=== PATIENT | female | born 1975 | race Hispanic/Latino ===

== ENCOUNTER 2019-11-23 13:58 | Outpatient (CLI) | payer OTHER, SELFPAY ==
--- NOTE | 2019-11-23 14:01 | ECG_ITS ---
Measurements Intervals [place] Rate: 66 P: 13 [place]: 146 QRS: 8 QRSD: 85 T: -10 QT: 419 QTc: 442 Interpretive Statements SINUS RHYTHM LOW QRS VOLTAGE IN PRECORDIAL LEADS ST-T WAVE ABNORMALITY IN INFERIOR LEADS- CONSIDER ISCHEMIA BASELINE ARTIFACT- II, III, AVF ABNORMAL ECG Electronically Signed On 11-23-2019 14:39:54 PAN WASHER HAND by Thaddeus Bertrand D.O.
[2019-11-23 14:34] LABS: Blood Urea Nitrogen 11 mg/dL (7-17); Calcium 8.9 mg/dL (8.4-10.2); Carbon Dioxide 24 mmol/L (22-30); Chloride 100 mmol/L (98-107); Estimated Glomerular Filt Rate > 60; Glucose 80 mg/dL (65-105); Potassium 3.8 mmol/L (3.4-5.0); Sodium 139 mmol/L (137-145)
== END 2019-11-23 13:59 | disposition home or self-care (01) ==
LOC: ANHSURGERY 14:01
PROVIDERS: Anesthesiology; PCP Internal Medicine; Visit Provider Otolaryngology
DX: R94.31 Abnormal electrocardiogram [ECG] [EKG] (principal); E11.9 Type 2 diabetes mellitus without complications; Z01.812 Encounter for preprocedural laboratory examination
CPT/HCPCS: 36415; 80048; 93005

== ENCOUNTER 2019-12-04 00:45 | Day surgery (SDC) | payer OTHER, SELFPAY ==
[2019-11-20 13:57] VITALS: BMI 32.6
[2019-12-04] VITALS (10 sets, daily range): BP systolic 93–133; BP diastolic 50–76; PULSE 66–97; RESP 10–19; TEMP 36.3–36.6; O2SAT 94–100
--- NOTE | 2019-12-04 08:26 | P.PNAN_ITS ---
Anes - Eval Pre Procedure Procedure: Operation Date: 12/04/19 10:00 Proposed Procedures p Left Superficial Parotidectomy, Possible Total Parotidectomy - Roel Pimentel MD Date/Time: 12/04/19 08:26 Surgeon: Gallito Pimentel MD Pre Op Diagnosis: Parotiditis Patient Data Age: 44 Gender: F Height: 5 ft 2 in Weight: 81 kg Allergies Allergy/AdvReac Type Severity Reaction Status Date / Time No Known Allergies Allergy Verified 11/23/19 12:57 Home Medications Medication Instructions Recorded Confirmed Type hydroxychloroquine 200 mg tablet 200 mg PO BID 10/26/19 11/20/19 History pilocarpine HCl 7.5 mg tablet 7.5 mg PO TID 10/26/19 11/20/19 History meloxicam 15 mg PO DAILY 11/20/19 11/20/19 History sumatriptan succinate 100 mg PO ONCE 11/20/19 11/20/19 History phentermine 3.75 mg-topiramate ER 1 cap PO DAILY 14 Days #14 cap 11/23/19 11/23/19 Rx 23 mg capsule,ext.release 24hr mphas phentermine 7.5 mg-topiramate ER 1 cap PO DAILY #30 cap 11/23/19 11/23/19 Rx 46 mg capsule,ext.release 24hr mphase ECG: [address] [place] [address] Electrocardiograph Report Signed Patient: Edward Wallis#: [id number] : 1975Acct:[id number] Age/Sex: 44 / FADM Date: 11/23/19 Loc: [facility] Attending Dr: Roel Pimentel MD Ordering Physician: Hudson Thomas MD Date of Service: 11/23/19 Procedure(s): CA 12 lead EKG Accession Number(s): [id number] cc: ~ Measurements Intervals [place] Rate: 66 P: 13 [place]: 146 QRS: 8 QRSD: 85 T: -10 QT: 419 QTc: 442 Interpretive Statements SINUS RHYTHM LOW QRS VOLTAGE IN PRECORDIAL LEADS ST-T WAVE ABNORMALITY IN INFERIOR LEADS- CONSIDER ISCHEMIA BASELINE ARTIFACT- II, III, AVF ABNORMAL ECG Electronically Signed On 11-23-2019 14:39:54 VISCERA WASHER by Thaddeus Bertrand D.O. : patient denies Patient hx anesthesia problems: none Family hx anesthesia problems: none Prior Surgeries: cystoscopy, robotic assisted hysterectomy [facility] Past Medical History Medical History (Updated 12/04/19 @ 08:26 by Anjana Altmairano CRNA) Chronic pain Diabetes Migraines Sjogren's disease Vaginal delivery Surgical History Surgical History History of cystoscopy History of robot-assisted laparoscopic hysterectomy Social History Social History Smoking status: Never smoker Second hand tobacco smoke exposure: No Alcohol intake: current Exam Day of Procedure 12/04/19 08:26
--- NOTE | 2019-12-04 08:47 | WPDANESEPPF ---
Anes - Initial Pre Proc Eval Procedure: Operation Date: 12/04/19 10:00 Proposed Procedures p Left Superficial Parotidectomy, Possible Total Parotidectomy - Roel Pimentel MD Date/Time: 12/04/19 08:47 Surgeon: Roel Pimentel MD Pre Op Diagnosis: Parotiditis Patient Data Age: 44 Gender: F Height: 5 ft 2 in Weight: 81 kg Allergies Allergy/AdvReac Type Severity Reaction Status Date / Time No Known Allergies Allergy Verified 12/04/19 08:35 Home Medications Medication Instructions Recorded Confirmed Type hydroxychloroquine 200 mg tablet 200 mg PO BID 10/26/19 11/20/19 History pilocarpine HCl 7.5 mg tablet 7.5 mg PO TID 10/26/19 11/20/19 History meloxicam 15 mg PO DAILY 11/20/19 11/20/19 History sumatriptan succinate 100 mg PO ONCE 11/20/19 11/20/19 History phentermine 3.75 mg-topiramate ER 1 cap PO DAILY 14 Days #14 cap 11/23/19 11/23/19 Rx 23 mg capsule,ext.release 24hr mphas phentermine 7.5 mg-topiramate ER 1 cap PO DAILY #30 cap 11/23/19 11/23/19 Rx 46 mg capsule,ext.release 24hr mphase : patient denies Patient hx anesthesia problems: none Family hx anesthesia problems: none PMFSH Past Medical History Medical History Chronic pain Diabetes Migraines Sjogren's disease Vaginal delivery Surgical History Surgical History History of cystoscopy History of robot-assisted laparoscopic hysterectomy Family History Family History Father Family history of diabetes mellitus in first degree relative Sibling Family history of diabetes mellitus in first degree relative Mother Family history of malignant neoplasm of uterus Social History Social History Smoking status: Never smoker Second hand tobacco smoke exposure: No Alcohol intake: current Anes - Eval Final PreProcedure Day of Procedure 12/04/19 08:47 Patient weight: obese Heart: regular rate and rhythm Lungs: clear to auscultation Airway: Mallampati scale class II Neurological: alert and oriented Last oral intake: >/= 8 hours ASA classification: III Emergent: no Anesthetic plan: proceed Anesthesia type and monitoring: general ETT and standard monitoring Informed Consent: The patient's anesthetic plan and its attendant risks and benefits were discussed with the patient/family/POA. Questions were solicited and answers provided to the satisfaction of the patient/family/POA.
[2019-12-04] MEDS: LACTATED RINGERS 1,000 ML 30 ML IV CONT ×2 (08:50→14:25)
[2019-12-04 08:51] LABS: Glucose Point of Care 91 (65-105)
--- NOTE | 2019-12-04 08:55 | PM.IMHP ---
H&P: HPI History of Present Illness Chief complaint: Parotiditis Narrative: Sjogrens. Left chronic parotitis. Review of Systems Review of Systems: All systems reviewed & are unremarkable except as noted in HPI and below PMFSH Past Medical History Medical History Chronic pain Diabetes Migraines Sjogren's disease Vaginal delivery Surgical History Surgical History History of cystoscopy History of robot-assisted laparoscopic hysterectomy Family History Family History Father Family history of diabetes mellitus in first degree relative Sibling Family history of diabetes mellitus in first degree relative Mother Family history of malignant neoplasm of uterus Social History Social History Smoking status: Never smoker Second hand tobacco smoke exposure: No Alcohol intake: current Meds Home Medications and Allergies Home Medications Medication Instructions Recorded Confirmed Type hydroxychloroquine 200 mg tablet 200 mg PO BID 10/26/19 11/20/19 History pilocarpine HCl 7.5 mg tablet 7.5 mg PO TID 10/26/19 11/20/19 History meloxicam 15 mg PO DAILY 11/20/19 11/20/19 History sumatriptan succinate 100 mg PO ONCE 11/20/19 11/20/19 History phentermine 3.75 mg-topiramate ER 1 cap PO DAILY 14 Days #14 cap 11/23/19 11/23/19 Rx 23 mg capsule,ext.release 24hr mphas phentermine 7.5 mg-topiramate ER 1 cap PO DAILY #30 cap 11/23/19 11/23/19 Rx 46 mg capsule,ext.release 24hr mphase Allergies Allergy/AdvReac Type Severity Reaction Status Date / Time No Known Allergies Allergy Verified 12/04/19 08:35 Exam Narrative: Exam Narrative: left parotid gland swelling, induration Assessment and Plan Assessment and plan (1) Chronic parotitis: Code(s): K11.23 - Chronic sialoadenitis Status: Acute Assessment and Plan: Sjogren's. chronic parotitis on left. Plan for left superficial parotidectomy.
[2019-12-04] MEDS: ceFAZolin 2 GM/D5W 50 ML 2 GM/50 ML BAG IVPB (09:28)
[2019-12-04] MEDS: LIDO 1%/EPINEPHRINE 1:100,000 20 ML VIAL 5 ML INFILTRATE (10:13)
[2019-12-04] MEDS: OXYMETAZOLINE HCL 0.05% NAS 15 ML BTL (*BKC) 1 SPRAY NASAL (12:27)
[2019-12-04] MEDS: ceFAZolin SODIUM 1 GM VIAL 2 GM IV PUSH (13:36)
--- NOTE | 2019-12-04 14:24 | PM.PROC ---
Procedure Note - Detailed Date of procedure: 12/04/19 Pre-op diagnosis: Parotiditis chronic left parotitis Post-op diagnosis: same Procedure performed: left superficial parotidectomy with facial nerve monitoring Description of procedure: After informed consent was obtained the time out procedure was performed the patient was brought to the operating room placed on the operating table in the supine position. The patient was placed under general endotracheal anesthesia. A modified Durga incision was marked out in the patient's left preauricular crease. 1% lidocaine with one 100,000 epinephrine was injected into the marked incision. The patient was prepped and draped in the usual fashion. A #15 scalpel was used to make the skin incision. This was carried down to the level of the greater auricular nerve.this nerve was dissected superiorly up to the patient's earlobe. The preauricular incision was also carried down to the level of the parotid fascia. Next the preauricular incision was carried down along the tragal cartilage and the tragal pointer using a fine dissector and bipolar electrocautery. The greater auricular nerve was preserved.? The posterior belly of the digastric muscle was identified after retracting the sternocleidomastoid muscle laterally. The main trunk of the facial nerve was identified in its normal anatomic position and preserved. The nerve intraoperative monitor was utilized throughout the case and the facial nerve was confirmed using the prass probe.? Next the facial nerve was dissected laterally to the pes and the upper lobe and lower divisions were identified. The superficial parotid gland in its entirety was dissected away from the lateral portion of the facial nerve. Once the specimen was passed off the field the wound bed was carefully irrigated using warm saline solution, there is no evidence of any significant bleeding. The upper and lower divisions of the facial nerve were then stimulated at 1 milliamp, and found to have greater than 1000 microvolts of stimulation. The wound was then closed in layers over a? Moo drain using 3-0 Vicryl, and 4-0 and? 5-0 Prolene suture. A fluff dressing along with a jaw bra were then placed on the patient. The Moo drain was noted to be holding suction. The patient was then awakened from general anesthesia, extubated and transferred to recovery in stable condition. Anesthesia: GETA Surgeon: Roel Pimentel MD Estimated blood loss (mL): 30 Drains: Yes Packing: No Pathology: yes (left superficial parotid gland) Complications: No immediate complications Condition: stable Disposition: PACU Findings: chronic inflammation noted. Hx of Sjogren's syndrome
[2019-12-04 14:49] LABS: Glucose Point of Care 157 (65-105)
--- NOTE | 2019-12-04 15:40 | SUR.PHASEI ---
1540 UPDATED SPOUSE IN WAITING ROOM
== END 2019-12-04 17:30 | disposition home or self-care (01) ==
PROVIDERS: PCP Internal Medicine; Visit Provider Otolaryngology
PROC: (CPT 42410; principal; 2019-12-04 10:00)
DX: K11.23 Chronic sialoadenitis (principal); M35.00 Sjogren syndrome, unspecified; E11.9 Type 2 diabetes mellitus without complications; G89.29 Other chronic pain
CPT/HCPCS: 42415; 88305; 88307; A9270; J0330; J0690; J1100; J2250; J2370; J2405; J2704; J3010; J7120

== ENCOUNTER 2021-11-14 08:04 | Outpatient (CLI) | payer OTHER, SELFPAY ==
--- NOTE | ~2021-11-14 | MM_ITS ---
EXAMINATION: MM screening jair BI w franklyn HISTORY: Screening TECHNIQUE: Craniocaudal and mediolateral oblique 3-D tomosynthesis images were obtained and synthetic 2-D images were generated. CAD analysis was submitted and interpreted. COMPARISON: No prior mammogram is available for comparison at this institution. BREAST PARENCHYMAL COMPOSITION: The breasts are heterogeneously dense, which may obscure small masses . FINDINGS: There is a mass in the lower inner quadrant of the left breast posteriorly. There are no simon spicious masses, calcifications or architectural distortion in the right breast to suggest malignancy . IMPRESSION: 1. Left breast mass, lower inner quadrant. 2. Additional mammographic views and possible breast ultrasound are recommended. BI-RADS Category 0: Incomplete: Needs additional imaging evaluation. Reviewed, dictated and finalized at location A. TUB TENDER IMPRESSION: 1. Left breast mass, lower inner quadrant. 2. Additional mammographic views and possible breast ultrasound are recommended . BI-RADS Category 0: Incomplete: Needs additional imaging evaluation.
== END 2021-11-14 08:05 | disposition home or self-care (01) ==
PROVIDERS: PCP Internal Medicine; Visit Provider Obstetrics & Gynecology
DX: Z12.31 Encounter for screening mammogram for malignant neoplasm of breast (principal); R92.8 Other abnormal and inconclusive findings on diagnostic imaging of breast
CPT/HCPCS: 77063; 77067

== ENCOUNTER 2021-11-21 12:11 | Outpatient (CLI) | payer OTHER, SELFPAY ==
--- NOTE | ~2021-11-21 | MMUS_ITS ---
EXAMINATION: MM diagnostic jair LT w franklyn, US breast LT limited HISTORY: Lower inner quadrant left breast mass reported on November 14, 2019 screening mammogram TECHNIQUE: Additional 3-D tomosynthesis images of the left breast were performed and synthetic 2-D im ages were generated. CAD analysis was submitted and interpreted. High resolution targeted 9:00-10:00 left breast ultrasound was performed. COMPARISON: November 14, 2021 screening mammogram FINDINGS: MAMMOGRAPHIC FINDINGS: A circumscribed approximately 5 x 11 mm opacity is noted in the mid to upper inner quadrant breast at approximately 10:00 position. ULTRASOUND: 9:00 6 cm from nipple: 4.4 x 10 x 8.1 mm circumscribed sonolucency with through transmission, likely a septated cyst. 10:00 4 cm from nipple: 3.5 x 4.9 mm cyst IMPRESSION: 1. Benign cysts at 9:00 and 10:00 2. Routine annual mammographic screening is recommended. BI-RADS Category 2: Benign finding(s). Reviewed, dictated and finalized at location A. ENT ASSISTANT IMPRESSION: 1. Benign cysts at 9:00 and 10:00 2. Routine annual mammographic screening is recommended. BI-RADS Category 2: Benign finding(s).
== END 2021-11-21 12:12 | disposition home or self-care (01) ==
LOC: ANHIMG 12:13
PROVIDERS: PCP Internal Medicine; Visit Provider Obstetrics & Gynecology
DX: R92.8 Other abnormal and inconclusive findings on diagnostic imaging of breast (principal)
CPT/HCPCS: 76642; 77061; 77065; G0279

== ENCOUNTER 2022-07-26 16:16 | Emergency (ER) | payer OTHER, SELFPAY ==
--- NOTE | ~2022-07-26 | XR_ITS ---
EXAMINATION: XR chest 2V Exam Date/Time: 07/26/2022 16:35 CDT HISTORY: COUGH X 1 WEEK Comparison: 08/04/2006. RESULT: Lines, tubes, and devices: None. Lungs and pleura: Low volumes with crowding. Cardiomediastinal silhouette: Stable. Other: No acute osseous or upper abdominal finding. IMPRESSION: No acute cardiopulmonary process. Reviewed, dictated and finalized at location K.
[2022-07-26 16:24] VITALS: BP 141/100; PULSE 72; RESP 16; TEMP 35.7; O2SAT 99
--- NOTE | 2022-07-26 16:57 | ED.URI ---
HPI - URI/Sore Throat General Chief Complaint: Upper Respiratory Infection Stated Complaint: Cough Time Seen by Provider: 07/26/22 16:30 Source: patient Mode of arrival: ambulatory Limitations: no limitations History of Present Illness HPI Narrative: is a 47-year-old female patient presenting to clinic today with complaints of cough and congestion x1.5 weeks. She denies any fever or chills. states that she is not bringing up any phlegm is this is a dry cough and she has developed some chest discomfort due to the cough MD elicited complaint: sore throat and nasal congestion Related Data Home Medications Medication Instructions Recorded Confirmed adalimumab 40 mg/0.4 mL 40 mg subcut DIRECTED 07/26/22 07/26/22 subcutaneous pen kit (Humira(CF) Pen) Allergies Allergy/AdvReac Type Severity Reaction Status Date / Time No Known Allergies Allergy Verified 07/26/22 16:31 Review of Systems Review of Systems: Pertinent positives per HPI. Patient denies any fever, chills, rash, headache, visual changes, dizziness, shortness of breath, chest pain, palpitations, nausea, vomiting, diarrhea, constipation, abdominal pain, or any urinary issues. PMFSH Past Medical History Medical History Chronic pain Diabetes Migraines Sjogren's disease Vaginal delivery Surgical History Surgical History History of cystoscopy History of robot-assisted laparoscopic hysterectomy Family History Family History Father Family history of diabetes mellitus in first degree relative Sibling Family history of diabetes mellitus in first degree relative Mother Family history of malignant neoplasm of uterus Social History Social History Smoking status: Never smoker Second hand tobacco smoke exposure: No Alcohol intake: current Comments At the time of my signature, I reviewed and agree with the nursing past medical, surgical, social, and family history. There is no relevant family history pertinent to the patient complaint. Exam Narrative: General: Well-developed, well nourished, in no apparent distress Head: Normocephalic, atraumatic Eyes: Pupils equally round and reactive to light bilaterally, EOM intact, sclera and conjunctive clear, no discharge, lids normal Ears: TMs intact and clear, ear canals clear, no drainage, grossly hearing normal. Nose: Nares patent, clear nasal discharge, no inflammation, no sinus tenderness. Mouth: Oral pharynx without lesions or masses, good dentition, MMM. Neck: Supple, trachea midline, no enlargement of anterior or posterior cervical nodes, no thyroid masses or goiter palpable. Cardio: Regular rate and rhythm, s1 and s2 normal, no murmur appreciated. Resp: diminished in the bases otherwise clear, no rhonchi, rales, wheezing or rubs Course Course Emergency Course: Portions of this record may have been created with voice recognition software. Level of Care: Express Care Visit Vital Signs Vital signs: Vital Signs Temperature 35.7 C L 07/26/22 16:24 Pulse Rate 72 07/26/22 16:24 Respiratory Rate 16 07/26/22 16:24 Blood Pressure 141/100 H 07/26/22 16:24 Pulse Oximetry 99 07/26/22 16:24 Oxygen Delivery Room Air 07/26/22 16:24 Temperature 35.7 C L 07/26/22 16:24 Pulse Rate 72 07/26/22 16:24 Respiratory Rate 16 07/26/22 16:24 Blood Pressure 141/100 H 07/26/22 16:24 Pulse Oximetry 99 07/26/22 16:24 Oxygen Delivery Room Air 07/26/22 16:24 Vital signs reviewed MDM - URI/Sore Throat MDM Narrative Medical decision making narrative: at the time of visit patient is resting comfortably on exam table. Chest x-ray was performed and was negative for any sign of pneumonia. I suspect patient hinojosa
== END 2022-07-26 17:05 | disposition home or self-care (01) ==
PROVIDERS: Emergency Provider Nurse Practitioner Family; PCP Internal Medicine
DX: J40 Bronchitis, not specified as acute or chronic (principal); E11.9 Type 2 diabetes mellitus without complications; M35.00 Sjogren syndrome, unspecified
CPT/HCPCS: 71046; 99213; G0463

== ENCOUNTER 2022-09-08 10:27 | Outpatient (CLI) | payer OTHER, SELFPAY ==
--- NOTE | ~2022-09-08 | XR_ITS ---
EXAMINATION: XR lumbar spine 2-3V DATE: 09/08/2022 10:53 INDICATION: Low back pain extending across the whole back and down the left leg TECHNIQUE: Anteroposterior and lateral views of the lumbar spine, and cone-down lateral view of the l umbosacral junction were obtained. COMPARISON: 05/29/2014 FINDINGS: Alignment is normal. Vertebral body heights are normal. Mild disc height loss at L3-L4 and L5-S1. Mil d osteoarthritis at the bilateral hip joints and a few sacroiliac joints. Sacrum and bilateral sacroi liac joints are normal. IMPRESSION: 1. Mild lumbar spondylosis. Reviewed, dictated and finalized at location A. TESTER IMPRESSION: 1. Mild lumbar spondylosis.
== END 2022-09-08 10:28 | disposition home or self-care (01) ==
PROVIDERS: PCP Internal Medicine; Visit Provider Internal Medicine
DX: M54.50 Low back pain, unspecified (principal); R10.11 Right upper quadrant pain
CPT/HCPCS: 72100

== ENCOUNTER 2022-09-11 09:59 | Outpatient (CLI) | payer OTHER, SELFPAY ==
--- NOTE | ~2022-09-11 | US_ITS ---
EXAMINATION: US right upper quadrant DATE: 09/11/2022 11:53 INDICATION: Right upper quadrant pain TECHNIQUE: Multiple grayscale and Doppler ultrasound images of the abdomen were obtained. COMPARISON: 05/10/2018 FINDINGS: The head and body of the pancreas are normal. The pancreatic tail is obscured by bowel gas. The liver demonstrates increased echogenicity, heterogenous echotexture, and decreased through trans mission. No surface nodularity. Normal hepatopetal flow in the main portal vein. The gallbladder is n ormal with no abnormal wall thickening, pericholecystic fluid or stones. The normal common bile duct measures 5 mm. There was no sonographic [place] sign. IMPRESSION: 1. Diffuse hepatic steatosis. Reviewed, dictated and finalized at location A. ZER OPERATOR
== END 2022-09-11 10:00 | disposition home or self-care (01) ==
PROVIDERS: PCP Internal Medicine; Visit Provider Internal Medicine
DX: M54.50 Low back pain, unspecified (principal); R10.11 Right upper quadrant pain; K76.0 Fatty (change of) liver, not elsewhere classified
CPT/HCPCS: 76705

== ENCOUNTER 2022-12-06 11:45 | Emergency (ER) | payer OTHER, SELFPAY ==
--- NOTE | 2022-12-06 11:58 | ED.URI ---
HPI - URI/Sore Throat General Chief Complaint: Upper Respiratory Infection Stated Complaint: cold sx Time Seen by Provider: 12/06/22 11:58 Source: patient Mode of arrival: ambulatory Limitations: no limitations History of Present Illness HPI Narrative: Katlyn is a 47-year-old female patient presenting to the clinic today with complaints of body aches, sore throat, nasal congestion, and chills x1 day. She reports her symptoms began yesterday. She denies any known fever or chills. Her son is also being seen in the clinic today with similar symptoms MD elicited complaint: sore throat, nasal congestion and other (Body aches) Related Data Home Medications Medication Instructions Recorded Confirmed adalimumab 40 mg/0.4 mL 40 mg subcut DIRECTED 07/26/22 12/06/22 subcutaneous pen kit (Humira(CF) Pen) Allergies Allergy/AdvReac Type Severity Reaction Status Date / Time No Known Allergies Allergy Verified 12/06/22 11:52 Review of Systems Review of Systems: Pertinent positives per HPI. Patient denies any fever, chills, rash, headache, visual changes, dizziness, cough, shortness of breath, chest pain, palpitations, nausea, vomiting, diarrhea, constipation, abdominal pain, or any urinary issues. [facility] Past Medical History Medical History (Updated 12/06/22 @ 12:28 by Isai Walter APRN) Chronic pain Diabetes Migraines Sjogren's disease Vaginal delivery Surgical History Surgical History History of cystoscopy History of robot-assisted laparoscopic hysterectomy Family History Family History Father Family history of diabetes mellitus in first degree relative Sibling Family history of diabetes mellitus in first degree relative Mother Family history of malignant neoplasm of uterus Social History Social History Smoking status: Never smoker Second hand tobacco smoke exposure: No Alcohol intake: current Substance use: never Substance use type: does not use Lack of Transportation: No Lack of Food: Never True Current Housing: I Have Housing Concerned About Future Housing: No Difficulty Paying Gas/Electric Bills: No Difficulty Paying for Meds: No Currently Unemployed: No Education: Trade/Vocational Certificate Comments At the time of my signature, I reviewed and agree with the nursing past medical, surgical, social, and family history. There is no relevant family history pertinent to the patient complaint. Exam Narrative: General: Well-developed, well nourished, in no apparent distress Head: Normocephalic, atraumatic Eyes: Pupils equally round and reactive to light bilaterally, EOM intact, sclera and conjunctive clear, no discharge, lids normal Ears: TMs intact and dull, ear canals clear, no drainage, grossly hearing normal. Nose: Nares patent, clear nasal discharge, no inflammation, no sinus tenderness. Mouth: Oral pharynx without lesions or masses, good dentition, MMM. Oropharynx red Neck: Supple, trachea midline, no enlargement of anterior or posterior cervical nodes, no thyroid masses or goiter palpable. Cardio: Regular rate and rhythm, s1 and s2 normal, no murmur appreciated. Resp: Clear to auscultation bilaterally, no rhonchi, rales, wheezing or rubs Course Course Emergency Course: Portions of this record may have been created with voice recognition software. Level of Care: Express Care Visit Vital Signs Vital signs: Vital Signs Temperature 36.8 C 12/06/22 11:59 Pulse Rate 73 12/06/22 11:59 Respiratory Rate 16 12/06/22 11:59 Blood Pressure 152/88 H 12/06/22 11:59 Pulse Oximetry 98 12/06/22 11:59 Oxygen Delivery Room Air 12/06/22 11:59 Temperature 36.8 C 12/06/22 11:59 Pulse Rate 73 12/06/22 11:59 Respiratory Rate 16 12/06/22 11:59
[2022-12-06 11:59] VITALS: BP 152/88; PULSE 73; RESP 16; TEMP 36.8; O2SAT 98
== END 2022-12-06 12:34 | disposition home or self-care (01) ==
PROVIDERS: Emergency Provider Nurse Practitioner Family; PCP Internal Medicine
DX: J02.8 Acute pharyngitis due to other specified organisms (principal); E11.9 Type 2 diabetes mellitus without complications
CPT/HCPCS: 99211; G0463

== ENCOUNTER 2022-12-07 15:59 | Emergency (ER) | payer OTHER, SELFPAY ==
[2022-12-07] VITALS (11 sets, daily range): BP systolic 132–169; BP diastolic 76–89; PULSE 65–78; RESP 16–25; TEMP 36.5; O2SAT 97–100
--- NOTE | ~2022-12-07 | XR_ITS ---
EXAMINATION: XR chest 2V Exam Date/Time: 12/07/2022 16:10 CDT HISTORY: STABBING CP SOB FOR 2 DAYS Comparison: 07/26/2022. RESULT: Lines, tubes, and devices: None. Lungs and pleura: Clear. Cardiomediastinal silhouette: Stable. Other: No acute osseous or upper abdominal finding. IMPRESSION: No acute cardiopulmonary process. Reviewed, dictated and finalized at location K.
--- NOTE | 2022-12-07 16:00 | ECG_ITS ---
Measurements Intervals [place] Rate: 69 P: 49 [place]: 142 QRS: 0 QRSD: 80 T: 1 QT: 411 QTc: 443 Interpretive Statements SINUS RHYTHM CONSIDER INFERIOR INFARCT, AGE INDETERMINATE BORDERLINE ST-T WAVE ABNORMALITY- ANTEROLATERAL LEADS ABNORMAL ECG COMPARED TO ECG 11/23/2019 14:31:28 NO SIGNIFICANT CHANGES Electronically Signed On 12-07-2022 16:14:29 CDT by Thaddeus Bertrand D.O.
[2022-12-07 18:47] LABS: Basophils Percent Auto 0.5 % (0.2-1.2); Eosinophils Absolute Auto 0.1 K/mm3 (0-0.3); Eosinophils Percent Auto 1.4 % (0-4.4); Hematocrit 45.1 % (37.0-47.0); Immature Granulocyte Absolute 0.01 K/mm3 (0.00-0.031); Immature Granulocyte Percent A 0.2 % (0-0.5); Lymphocytes Absolute Auto 3.15 K/mm3 (0.9-3.2); Lymphocytes Percent Auto 47.7 % (18.3-44.2); Mean Corpuscular HGB Conc 33.3 g/dl (32-36); Mean Corpuscular Hemoglobin 29.8 pg (26-34); Mean Corpuscular Volume 89.7 fl (80-100); Mean Platelet Volume 11.6 fl (7.4-10.4); Monocytes Absolute Auto 0.5 K/mm3 (0.1-0.6); Neutrophils Absolute Auto 2.8 K/mm3 (1.3-6.7); Neutrophils Percent Auto 42.2 % (45.5-73.1); Platelet Count Result 227 k/mm3 (150-375); Red Blood Count 5.03 M/mm3 (4.2-5.4); White Blood Count 6.6 K/mm3 (4.5-10.0)
[2022-12-07 18:57] LABS: Alanine Aminotransferase 81 U/L (6-35); Albumin Level 4.9 g/dL (3.5-5.1); Alkaline Phosphatase 100 U/L (38-126); Anion Gap 5 mmol/L (8-16); Aspartate Amino Transferase 54 U/L (14-36); Bilirubin,Total 0.5 mg/dL (0.2-1.3); Blood Urea Nitrogen 10 mg/dL (7-17); Calcium 9.7 mg/dL (8.4-10.2); Carbon Dioxide 29 mmol/L (22-30); Chloride 102 mmol/L (98-107); Estimated CRCL calculation 120 ml/min; Estimated Glomerular Filt Rate > 60; Glucose 94 mg/dL (65-110); Lipase 41 U/L (23-300); Potassium 4.2 mmol/L (3.4-5.0); Prothrombin Time 12.8 Seconds (11.1-14.7); Sodium 136 mmol/L (137-145)
[2022-12-07 18:58] LABS: Partial Thromboplastin Time 30.8 SECONDS (22.3-36.8)
[2022-12-07 19:08] LABS: Troponin I < 0.012 ng/mL (0.000-0.034)
[2022-12-07 23:08] LABS: Troponin I < 0.012 ng/mL (0.000-0.034)
[2022-12-07 23:17] LABS: D Dimer < 0.27 ug/mL (<0.48)
--- NOTE | 2022-12-07 23:57 | PC.NURSE ---
Per DR. Douglas, discontinue ASA ordered for protocol.
[2022-12-08] VITALS (13 sets, daily range): BP systolic 107–152; BP diastolic 72–91; PULSE 61–74; RESP 12–20; O2SAT 58–100
[2022-12-08 00:18] LABS: Influenza A QL RT-PCR Negative (Negative); Influenza B QL RT-PCR Negative (Negative); RSV RNA, RT-PCR Negative (Negative); SARS-CoV-2 RNA PCR Negative
--- NOTE | 2022-12-08 00:28 | ED.GENADULT ---
HPI - General Adult General Chief complaint: Chest Pain Stated complaint: Chest pain Time Seen by Provider: 12/07/22 22:05 History of Present Illness HPI narrative: Patient is a 47-year-old female who presents emerged part with chief complaint of chest pain. The patient reports that she started having pain on the left side of her chest that describes as sharp and pleuritic worse with inspiration and movement. Patient did develop of a cough for the last couple days and reports she had some chills and body aches. Patient denies defined fever patient reports cough has been nonproductive Related Data Home Medications Medication Instructions Recorded Confirmed adalimumab 40 mg/0.4 mL 40 mg subcut DIRECTED 07/26/22 12/06/22 subcutaneous pen kit (Humira(CF) Pen) Allergies Allergy/AdvReac Type Severity Reaction Status Date / Time No Known Allergies Allergy Verified 12/07/22 22:01 Review of Systems Review of Systems: A 10 system review of systems was completed on the patient and is negative except for what is stated in the HPI. Nursing and ancillary documentation was reviewed. [facility] Past Medical History Medical History (Updated 12/08/22 @ 00:32 by Kehinde Douglas MD) Chronic pain Diabetes Migraines Sjogren's disease Vaginal delivery Surgical History Surgical History History of cystoscopy History of robot-assisted laparoscopic hysterectomy Family History Family History Father Family history of diabetes mellitus in first degree relative Sibling Family history of diabetes mellitus in first degree relative Mother Family history of malignant neoplasm of uterus Social History Social History Smoking status: Never smoker Second hand tobacco smoke exposure: No Alcohol intake: current Substance use: never Substance use type: does not use Lack of Transportation: No Lack of Food: Never True Current Housing: I Have Housing Concerned About Future Housing: No Difficulty Paying Gas/Electric Bills: No Difficulty Paying for Meds: No Currently Unemployed: No Education: Trade/Vocational Certificate Exam Narrative: GENERAL: Well-appearing, well-nourished, and in no acute distress. HEAD: Normocephalic, atraumatic. EYES: PERRLA and EOMI. ENT: Nares clear, no rhinorrhea or epistaxis. Mucous membranes moist. NECK: Supple. CHEST: Clear to auscultation. No respiratory distress. Chest wall is tender to palpation in the left sternal border HEART: Regular rate and rhythm. No murmur heard. Normal peripheral pulses. ABDOMEN: Soft, nontender, nondistended, normal active bowel sounds. EXTREMITIES: Normal range of motion. No edema. SKIN: Warm, dry, no rash. NEURO: No focal deficits. Alert and oriented x3. PSYCH: Normal mood and affect. Course Vital Signs Vital signs: Vital Signs Temperature 36.5 C 12/07/22 16:02 Pulse Rate 73 12/07/22 16:02 Respiratory Rate 16 12/07/22 16:02 Blood Pressure 154/76 H 12/07/22 16:02 Pulse Oximetry 97 12/07/22 16:02 Oxygen Delivery Room Air 12/07/22 16:02 Temperature 36.5 C 12/07/22 16:02 Pulse Rate 73 12/07/22 22:11 Respiratory Rate 21 H 12/07/22 22:11 Blood Pressure 169/86 H 12/07/22 22:04 Pulse Oximetry 100 12/07/22 22:11 Oxygen Delivery Room Air 12/07/22 22:02 Medical Decision Making MDM Narrative Medical decision making narrative: Differential diagnosis includes pneumothorax, PE, ACS, pleuritic chest pain, chest wall pain COVID, pneumonia, bronchitis EKG sinus rhythm rate of [address] elevation or ST depression Studies were obtained which showed a initial troponin of negative and a 6-hour troponin of negative COVID and flu and RSV were negative lipase was negative limits liver enzymes were slightly elevated,
== END 2022-12-08 01:30 | disposition home or self-care (01) ==
PROVIDERS: Emergency Medicine; Emergency Provider Emergency Medicine; PCP Internal Medicine
DX: R07.89 Other chest pain (principal); Z20.822 Contact with and (suspected) exposure to COVID-19; E11.9 Type 2 diabetes mellitus without complications; M35.00 Sjogren syndrome, unspecified; Z90.710 Acquired absence of both cervix and uterus; R94.31 Abnormal electrocardiogram [ECG] [EKG]
CPT/HCPCS: 36415; 71046; 80053; 83690; 84484; 85025; 85380; 85610; 85730; 87637; 93005; 99284

== ENCOUNTER 2022-12-15 15:44 | Outpatient (CLI) | payer OTHER, SELFPAY ==
--- NOTE | ~2022-12-15 | MM_ITS ---
EXAMINATION: MM screening [facility] BI [facility] HISTORY: Screening TECHNIQUE: Craniocaudal and mediolateral oblique 3-D tomosynthesis images were obtained and synthetic 2-D images were generated. CAD analysis was submitted and interpreted. COMPARISON: Comparison to multiple prior studies sequentially, with oldest reviewed study dated 07/28. BREAST PARENCHYMAL COMPOSITION: There are scattered areas of fibroglandular density. FINDINGS: There is no evidence of suspicious mass, calcification, or architectural distortion to sugg est malignancy in either breast. There has been no suspicious interval change. IMPRESSION: 1. No mammographic evidence of malignancy. 2. Recommend routine screening mammography in one year. BI-RADS Category 1: Negative Reviewed, dictated and finalized at location A.
== END 2022-12-15 15:45 | disposition home or self-care (01) ==
LOC: ANHIMG 15:45
PROVIDERS: PCP Internal Medicine; Visit Provider Obstetrics & Gynecology
DX: Z12.31 Encounter for screening mammogram for malignant neoplasm of breast (principal)
CPT/HCPCS: 77063; 77067

== ENCOUNTER 2023-06-27 08:58 | Emergency (ER) | payer OTHER, SELFPAY ==
[2023-06-27 09:08] VITALS: BP 127/87; PULSE 81; RESP 18; TEMP 36.6; O2SAT 97
--- NOTE | 2023-06-27 09:19 | ED.URI ---
HPI - URI/Sore Throat General Chief Complaint: Upper Respiratory Infection Stated Complaint: Cough Time Seen by Provider: 06/27/23 09:19 Source: patient, RN notes reviewed and old records reviewed Mode of arrival: ambulatory Limitations: no limitations History of Present Illness HPI Narrative: 48 year old female who presents to [facility] care with complaints of persistent cough and some headache discomfort. Patient reports that she has a lot of mucous in her throat, ribs hurt from coughing.. Patient states that her cough is worse at night and she is not resting well. Patient received prescription for doxycycline from her PCP on the but doesn't seem to be getting any better. Patient reports that she has been taking some OTC sinus with decongestant also. Patient reports that she has not had a fever that she is aware of. Patient has history of Sjogren and takes infusions for her disease. MD elicited complaint: cough and sore throat Pertinent past history: immunosuppression Onset (ago): week(s) (2) Able to tolerate fluids by mouth: Yes Treatments prior to arrival: antibiotics and other (sinus med with decogestant) Related Data Home Medications Medication Instructions Recorded Confirmed doxycycline hyclate 100 mg tablet mg 06/27/23 semaglutide 1 mg/dose (4 mg/3 mL) mg subcut 06/27/23 subcutaneous pen injector (Ozempic) Allergies Allergy/AdvReac Type Severity Reaction Status Date / Time No Known Allergies Allergy Verified 06/27/23 09:07 Review of Systems Review of Systems: CONSTITUTIONAL: Denies malaise, chills, sweats, or fever. EYES: Denies visual changes, redness, or discharge. ENT: Reports rhinorrhea, congestion, sinus pain,no otalgia and no sore throat. CARDIOVASCULAR: Denies chest pain, palpitations, or edema. RESPIRATORY: Reports cough.? Denies dyspnea. GASTROINTESTINAL: Denies abdominal pain, nausea, vomiting, diarrhea SKIN: Denies rash or itching. MUSCULOSKELETAL: Denies myalgia. NEUROLOGIC: Reports headache. All systems reviewed & are unremarkable except as noted in HPI and below PMFSH Past Medical History Medical History (Updated 06/28/23 @ 08:18 by Marely Anderson NP) Chronic pain Diabetes Migraines Sjogren's disease Vaginal delivery Surgical History Surgical History History of cystoscopy History of robot-assisted laparoscopic hysterectomy Family History Family History Father Family history of diabetes mellitus in first degree relative Sibling Family history of diabetes mellitus in first degree relative Mother Family history of malignant neoplasm of uterus Social History Social History Smoking status: Never smoker Second hand tobacco smoke exposure: No Alcohol intake: current Substance use: never Substance use type: does not use Lack of Transportation: No Lack of Food: Never True Current Housing: I Have Housing Concerned About Future Housing: No Difficulty Paying Gas/Electric Bills: No Difficulty Paying for Meds: No Currently Unemployed: No Education: Trade/Vocational Certificate Comments At time of signature, agree with nursing past medical, surgical, social and family history. There is no relevant family history pertinent to the presenting complaint Exam Narrative: GENERAL: Well-appearing, well-nourished, and in no acute distress. HEAD: Normocephalic EYES: PERRLA, conjunctivae clear ENT: Nares clear, turbinates edematous and erythematous, clear discharge. Mucous membranes moist.sinus pressure, some headache. TM pearly jensen with dull light reflex bilaterally; no tragal tenderness. Oropharynx erythematous without lesions. Tonsils not enlarged and without exudate, no drooling, no hoarseness, no trismus, uvula midline, post nasal drainage. NECK: Supple. No ly
--- NOTE | 2023-06-27 10:42 | PC.NURSE ---
1040- Niki from [facility] called they do not carry prescribed cough syrup. Rx changed to Robitussin AC 5mL q4-6 qty:473 no refills. Per Alysia Anderson.
== END 2023-06-27 09:48 | disposition home or self-care (01) ==
PROVIDERS: Emergency Provider Registered Nurse; PCP Family Medicine
DX: J01.40 Acute pansinusitis, unspecified (principal); E11.9 Type 2 diabetes mellitus without complications; M35.00 Sjogren syndrome, unspecified
CPT/HCPCS: 99213; G0463

== ENCOUNTER 2023-12-27 07:49 | Outpatient (CLI) | payer OTHER, SELFPAY ==
--- NOTE | ~2023-12-27 | US_ITS ---
EXAMINATION: US abdomen limited DATE: 12/27/2023 09:03 INDICATION: Abnormal liver function tests. TECHNIQUE: Multiple grayscale and Doppler ultrasound images of the abdomen were obtained. COMPARISON: Abdomen ultrasound 09/11/2022 FINDINGS: The visualized portions of the head and body of the pancreas are normal. There is diffuse h epatic steatosis. There is normal flow in main portal vein. The gallbladder is normal in size and con tains gallstones. No gallbladder wall thickening or sonographic Durham sign. The common duct is sara l measures 3 mm. IMPRESSION: 1. Diffuse hepatic steatosis. 2. Cholelithiasis. Reviewed, dictated and finalized at location A.
--- NOTE | ~2023-12-27 | NM_ITS ---
EXAM: NM gastric emptying study DATE: 12/27/2023 13:50 INDICATION: Gastroparesis. Abdominal pain. TECHNIQUE: A gastric emptying study was performed using the methodology of Nilson BRYANT, et al. J Nucl Med 2007; 48:568-572. The patient was given a meal consisting of 2 scrambled eggs labeled with 0.937 mCi Tc-99m sulfur colloid, 2 slices of toast, two packages of jam, and approximately 120 mL of water . Simultaneous anterior and posterior 1-min images of the abdomen were obtained with the patient supi ne at multiple time points over a total period of 4 hours. The geometric mean of anterior and posteri or views was determined, and the percentage retention was calculated for each time point. COMPARISON: None. FINDINGS: Gastric retention of the radiotracer-labeled meal was 24%, 11%, and 4% at the 1-hour, 2-ho ur, and 4-hour time points, respectively. With this technique, apparent rapid gastric emptying is sug gested by <30% gastric retention at 1 hour. Delayed gastric emptying is defined by gastric retention of >90% at 1 hour, >60% retention at 2 hours, or >10% retention at 4 hours. IMPRESSION: 1. Rapid gastric emptying. Reviewed, dictated and finalized at location A. IMPRESSION: 1. Rapid gastric emptying.
== END 2023-12-27 07:50 | disposition home or self-care (01) ==
PROVIDERS: PCP Family Medicine; Visit Provider Family Medicine
DX: K31.84 Gastroparesis (principal); R74.01 Elevation of levels of liver transaminase levels; K80.20 Calculus of gallbladder without cholecystitis without obstruction
CPT/HCPCS: 76705; 78264; A9541

== ENCOUNTER 2024-01-14 07:44 | Outpatient (CLI) | payer OTHER, SELFPAY ==
--- NOTE | ~2024-01-14 | NM_ITS ---
EXAMINATION: NM hepatobiliary wo pharm DATE: 01/14/2024 10:54 INDICATION: Right upper quadrant abdominal pain and nausea COMPARISON: None. TECHNIQUE: 5 mCi Tc-99m mebrofenin (Choletec) was administered intravenously. Scintigraphic images o f the abdomen were obtained for one hour. At the 1 hour time point, the patient drank 8 oz Ensure, an d imaging was continued for 60 minutes. Gallbladder ejection fraction was calculated by the technolog ist. FINDINGS: There is normal clearance of radiotracer from the blood pool. There is homogeneous tracer u ptake by the liver. Activity progresses to the bowel and gallbladder. The gallbladder ejection fract ion (GBEF) is 47%. Note that with this technique, normal GBEF >= 33%. IMPRESSION: 1. Normal hepatobiliary scan. Reviewed, dictated and finalized at location A.
== END 2024-01-14 07:45 | disposition home or self-care (01) ==
LOC: ANHIMG 07:46
PROVIDERS: PCP Family Medicine; Visit Provider Nurse Practitioner
DX: R10.11 Right upper quadrant pain (principal); R11.0 Nausea; R68.81 Early satiety
CPT/HCPCS: 78226; A9537

== ENCOUNTER 2024-02-28 03:22 | Day surgery (SDC) | payer OTHER, SELFPAY ==
[2024-02-28] MEDS: LACTATED RINGERS 1,000 ML 150 ML IV CONT (09:36)
[2024-02-28 09:48] VITALS: BMI 34.6
--- NOTE | 2024-02-28 10:04 | PM.HPGS ---
History of Present Illness History of Present Illness Consent: Risks, benefits, and alternatives have been discussed and questions answered. Patient agrees to proceed with procedure. Chief complaint: abdominal pain Narrative: Katlyn Wallis is a 48 year old female with intermittent abdominal pain, cramping and post prandial loose stools, also nausea. She thinks that had scopes but years ago. Review of Systems Review of Systems: All systems reviewed & are unremarkable except as noted in HPI and below PMFSH Past Medical History Medical History (Updated 02/28/24 @ 10:05 by Ariel Sam MD) Abdominal pain Chronic pain Diabetes Migraines Sjogren's disease Vaginal delivery Surgical History Surgical History History of cystoscopy History of robot-assisted laparoscopic hysterectomy Family History Family History Father Family history of diabetes mellitus in first degree relative Sibling Family history of diabetes mellitus in first degree relative Mother Family history of malignant neoplasm of uterus Social History Social History Smoking status: Never smoker Second hand tobacco smoke exposure: No Alcohol intake: current Substance use: never Substance use type: does not use Lack of Transportation: No Lack of Food: Never True Current Housing: I Have Housing Concerned About Future Housing: No Difficulty Paying Gas/Electric Bills: No Difficulty Paying for Meds: No Currently Unemployed: No Education: Trade/Vocational Certificate Living arrangements: with family Spiritual care concerns: No Meds Home Medications and Allergies Home Medications Medication Instructions Recorded Confirmed Type albuterol sulfate 90 mcg/actuation 2 puff inhalation QID PRN 06/27/23 02/11/24 Rx aerosol inhaler shortness of breath or wheezing #6.7 grams golimumab 12.5 mg/mL intravenous IV 11/30/23 11/30/23 History solution (Simponi ARIA) sumatriptan succinate 25 mg tablet See Rx Instructions PO .COMPLEX 11/30/23 02/11/24 History cholestyramine-aspartame 4 gram 4 g PO DAILY #30 ea 01/10/24 02/11/24 Rx oral powder for susp in a packet (Cholestyramine Light) dicyclomine 10 mg capsule 10 mg PO QID PRN abdominal pain 01/10/24 02/11/24 Rx #120 caps ondansetron 4 mg disintegrating 4 mg PO Q8H PRN nausea and 01/10/24 02/11/24 Rx tablet vomiting #30 tabs Allergies Allergy/AdvReac Type Severity Reaction Status Date / Time No Known Allergies Allergy Verified 02/28/24 09:24 Exam Const: General: comfortable and no acute distress HENMT: Face/Nose/Sinus: Normal nares present Eyes: General: appearance normal, both eyes and all related structures Neck: Neck: no JVD Resp: Auscultation: clear to auscultation bilaterally Cardio: Rate: regular rate Rhythm: regular rhythm GI: Inspection: non-distended GI Palp: Yes Soft to palpation Skin: General skin exam: normal color Neuro: General: gait normal Speech: normal speech Extrem: General: normal to inspection Psych: Mental Status: mental status grossly normal Assessment and Plan Assessment and plan (1) Diarrhea: Qualifiers: Diarrhea type: functional diarrhea Qualified Code(s): K59.1 - Functional diarrhea Code(s): R19.7 - Diarrhea, unspecified Status: Acute Assessment and Plan: egd and colonoscopy, random bx (2) Abdominal pain: Code(s): R10.9 - Unspecified abdominal pain Status: Acute
--- NOTE | 2024-02-28 10:14 | WPDANESEPPF ---
Anes - Initial Pre Proc Eval Procedure: Operation Date: 02/28/24 10:30 Proposed Procedures p Esophagogastroduodenoscopy & Colonoscopy - Ariel Sam MD Date/Time: 02/28/24 10:14 Surgeon: Ariel Sam MD Pre Op Diagnosis: abdominal pain Patient Data Age: 48 Gender: F Height: 1.57 m Weight: 85.8 kg Allergies Allergy/AdvReac Type Severity Reaction Status Date / Time No Known Allergies Allergy Verified 02/28/24 09:24 Home Medications Medication Instructions Recorded Confirmed Type albuterol sulfate 90 mcg/actuation 2 puff inhalation QID PRN 06/27/23 02/11/24 Rx aerosol inhaler shortness of breath or wheezing #6.7 grams golimumab 12.5 mg/mL intravenous IV 11/30/23 11/30/23 History solution (Simponi ARIA) sumatriptan succinate 25 mg tablet See Rx Instructions PO .COMPLEX 11/30/23 02/11/24 History cholestyramine-aspartame 4 gram 4 g PO DAILY #30 ea 01/10/24 02/11/24 Rx oral powder for susp in a packet (Cholestyramine Light) dicyclomine 10 mg capsule 10 mg PO QID PRN abdominal pain 01/10/24 02/11/24 Rx #120 caps ondansetron 4 mg disintegrating 4 mg PO Q8H PRN nausea and 01/10/24 02/11/24 Rx tablet vomiting #30 tabs Patient hx anesthesia problems: none Family hx anesthesia problems: none Results Review: All pre-operative results and documents have been reviewed as part of the pre-operative evaluation. [facility] Past Medical History Medical History (Updated 02/28/24 @ 10:05 by Ariel Sam MD) Abdominal pain Chronic pain Diabetes Migraines Sjogren's disease Vaginal delivery Surgical History Surgical History History of cystoscopy History of robot-assisted laparoscopic hysterectomy Family History Family History Father Family history of diabetes mellitus in first degree relative Sibling Family history of diabetes mellitus in first degree relative Mother Family history of malignant neoplasm of uterus Social History Social History Smoking status: Never smoker Second hand tobacco smoke exposure: No Alcohol intake: current Substance use: never Substance use type: does not use Lack of Transportation: No Lack of Food: Never True Current Housing: I Have Housing Concerned About Future Housing: No Difficulty Paying Gas/Electric Bills: No Difficulty Paying for Meds: No Currently Unemployed: No Education: Trade/Vocational Certificate Living arrangements: with family Spiritual care concerns: No Anes - Eval Final PreProcedure Day of Procedure 02/28/24 10:14 Patient weight: normal Heart: regular rate and rhythm Lungs: clear to auscultation Airway: Mallampati scale class II Neurological: alert and oriented Last oral intake: >/= 8 hours ASA classification: III Emergent: no Anesthetic plan: proceed Anesthesia type and monitoring: general GIVS and standard monitoring Results Review: All pre-operative results and documents have been reviewed as part of the pre-operative evaluation. Informed Consent: The patient's anesthetic plan and its attendant risks and benefits were discussed with the patient/family/POA. Questions were solicited and answers provided to the satisfaction of the patient/family/POA.
[2024-02-28 10:34] VITALS: BP 106/66; PULSE 65; RESP 16; O2SAT 100
[2024-02-28 10:44] VITALS: BP 112/73; PULSE 63; RESP 22; O2SAT 100
--- NOTE | 2024-02-28 10:53 | SUR.OPER ---
EGD: Start 10:15, End 10:19 Colonoscopy: Start 10:23, End 10:30
[2024-02-28 10:54] VITALS: BP 125/87; PULSE 63; RESP 17; O2SAT 99
== END 2024-02-28 11:07 | disposition home or self-care (01) ==
PROVIDERS: PCP Family Medicine; Referring Provider Obstetrics & Gynecology; Visit Provider Internal Medicine Gastroenterology
PROC: 0DJ08ZZ Inspection of Upper Intestinal Tract, Via Natural or Artificial Opening Endoscopic (ICD-10-PCS; CPT 43235; principal; 2024-02-28 10:30)
DX: K29.50 Unspecified chronic gastritis without bleeding (principal); B96.81 Helicobacter pylori [H. pylori] as the cause of diseases classified elsewhere; K57.30 Diverticulosis of large intestine without perforation or abscess without bleeding; K64.8 Other hemorrhoids; M35.00 Sjogren syndrome, unspecified; E11.9 Type 2 diabetes mellitus without complications; Z79.51 Long term (current) use of inhaled steroids; Z79.620 Long term (current) use of immunosuppressive biologic
CPT/HCPCS: 45380; 43239; 88305; J2704; J7120

== ENCOUNTER 2024-06-13 15:43 | Outpatient (CLI) | payer OTHER, SELFPAY ==
--- NOTE | ~2024-06-13 | MM_ITS ---
EXAMINATION: MM screening [facility] BI w [facility] HISTORY: Screening mammogram TECHNIQUE: Craniocaudal and mediolateral oblique 3-D tomosynthesis images were obtained and synthetic 2-D images were generated. CAD analysis was submitted and interpreted. COMPARISON: 12/15/2022, 11/14/2021, 08/30/2018 BREAST PARENCHYMAL COMPOSITION:Not Dense. There are scattered areas of fibroglandular density. FINDINGS: No suspicious mass, calcification, or architectural distortion are identified in either [place] ast to suggest malignancy. There has been no suspicious interval change. IMPRESSION: No mammographic evidence of malignancy. Recommend routine screening mammography in one year. BI-RADS Category 1: Negative Reviewed, dictated and finalized at location .
== END 2024-06-13 15:44 | disposition home or self-care (01) ==
PROVIDERS: PCP Family Medicine; Visit Provider Obstetrics & Gynecology
DX: Z12.31 Encounter for screening mammogram for malignant neoplasm of breast (principal)
CPT/HCPCS: 77063; 77067

== ENCOUNTER 2024-11-29 16:48 | Emergency (ER) | payer OTHER, SELFPAY ==
--- NOTE | ~2024-11-29 | XR_ITS ---
CHEST RADIOGRAPH, PA AND LATERAL CLINICAL HISTORY: Productive cough x 1 week . COMPARISON: 12/07/2022 TECHNIQUE: PA and lateral views of the chest. FINDINGS The cardiomediastinal silhouette is unremarkable. The lungs are clear. Visualized osseous structures and soft tissues are unremarkable. IMPRESSION: No focal infiltrate or effusion. Reviewed, dictated and finalized at location A. L CNC OPERATOR
[2024-11-29 16:55] VITALS: BP 132/70; PULSE 99; RESP 16; TEMP 36.4; O2SAT 99
--- NOTE | 2024-11-29 17:07 | ED_ITS ---
HPI - URI/Sore Throat General Chief Complaint: Upper Respiratory Infection Stated Complaint: flu-like symptoms History of Present Illness HPI Narrative: 2 week history of runny nose, cough. Getting better, then not. Reports copious postnasal drainage that she believes is causing some wheezing, sinus pain and pressure. She has been trying multiple yrsv-hdy-fczbhrd medications with poor relief. She is not any obvious distress Related Data Home Medications ?Medication ?Instructions ?Recorded ?Confirmed ?Last Taken ?Type golimumab 12.5 mg/mL intravenous IV 11/30/23 09/12/24 Unknown History solution (Simponi ARIA) sumatriptan succinate 25 mg tablet See Rx Instructions PO .COMPLEX 11/30/23 09/12/24 Unknown History ergocalciferol (vitamin D2) 1,250 11/29/24 Unknown History mcg (50,000 unit) capsule Allergies Allergy/AdvReac Type Severity Reaction Status Date / Time No Known Allergies Allergy Verified 11/29/24 16:58 Review of Systems Review of Systems: All systems reviewed & are unremarkable except as noted in HPI and below Constitutional: Constitutional: Reports no additional constitutional complaints and Reports lethargy ENT: Reports system reviewed and no additional complaints, except as d ocumented, Reports facial pain, Reports nasal congestion, Reports nasal discharge, Reports sinus pressure and Reports sore throat Cardiovascular: Cardiovascular: Reports no additional cardiovascular complaints Respiratory: Respiratory: Reports no additional respiratory complaints, Reports cough and Reports wheezing Gastrointestinal: Gastrointestinal: Reports no additional gastrointestinal complaints [facility] Past Medical History Medical History Helicobacter pylori gastritis Abdominal pain Chronic pain Migraines Diabetes Vaginal delivery Sjogren's disease Surgical History Surgical History History of cystoscopy History of robot-assisted laparoscopic hysterectomy Family History Family History Father Family history of diabetes mellitus in first degree relative Sibling Family history of diabetes mellitus in first degree relative Mother Family history of malignant neoplasm of uterus Social History Social History Smoking status: Never smoker Second hand tobacco smoke exposure: No Alcohol intake: current Substance use: never Substance use type: does not use Lack of Transportation: No Lack of Food: Never True Current Housing: I Have Housing Concerned About Future Housing: No Difficulty Paying Gas/Electric Bills: No Difficulty Paying for Meds: No Currently Unemployed: No Education: Trade/Vocational Certificate Living arrangements: with family Spiritual care concerns: No Exam Const: General: cooperative, no acute distress, alert and awake Orientation/consciousness: oriented to person, oriented to place and oriented to time HENMT: Head: normal to inspection Ears: TM abnormal dull bilateral Face and sinus: sinus tenderness Mouth: Yes moist mucous membranes Throat: posterior oropharynx abnormal erythema and postnasal drainage Resp: Effort & Inspection: normal respiratory effort and able to speak in complete sentences Auscultation: clear to auscultation bilaterally, no crackles, no rales, no rhonchi and no wheezes Cardio: Palpation: normal PMI Rate: regular rate Rhythm: regular rhythm Heart sounds: S1 normal heart sound present and S2 normal heart sound present Neuro: General: oriented to person, oriented to place and oriented to time Cranial nerves: Yes CN's II-XII intact bilaterally Psych: Appearance: grossly normal Thought process: Normal thought process present Insight: Good insight present (Psych) Judgement: Good judgement present (Psych) Course Course Level of Care: Express Care Visit Vital Signs Vital signs: Vital Signs Temperature 97.6 F 11/29/24 16:55 Pulse Rate 99 11/29/24 16:55 Respiratory Rate 16 11/29/24 16:55 Blood Pressure 132/70 11/29/24 16:55 Pulse Oximetry 99 11/29/24 16:55 Oxygen Delivery Room Air 11/29/24 16:55 Temperature 97.6 F 11/29/24 16:55 Pulse Rate 99 11/29/24 16:55 Respiratory Rate 16 11/29/24 17:10 Blood Pressure 132/70 11/29/24 16:55 Pulse Oximetry 99 11/29/24 17:10 Oxygen Delivery Room Air 11/29/24 16:55 MDM - URI/Sore Throat MDM Narrative Medical decision making narrative: Negative COVID, negative flu. Chest x-ray with no acute findings. Sinus tenderness on palpation. Patient nontoxic appearing, stable for discharge home with p.o. antibiotics treat sinusitis. Discharge instructions reviewed with patient, as well as provided in writing per nursing staff. The instructions also include specific and strict return/GO TO THE ER as well as f/u information. All questions have been answered, and the patient deny any further questions with discharge and discharge plan. Some parts of this dictation were generated by voice recognition software and may contain typographical and/or grammatical inaccuracies. Differential Diagnosis Differential diagnosis: Likely upper respiratory infection, otitis media, sinusitis, viral infection and influenza Medical Records Attestation: I reviewed the patient's medical records. Lab Data Attestation: I reviewed the patient's lab results. Labs: Lab Results 11/29/24 Range/Units 16:58 POC Influenza A Ag Negative (Negative) POC Influenza B Ag Negative (Negative) POC SARS CoV-2 Ag Negative (Negative) Imaging Data Attestation: I personally reviewed and interpreted this imaging study as follows: My impression: No acute finding Radiologist's impression: [facility] [address] [place] [address] XRay Report Signed Patient: Katlyn Wallis : 1975 MR#: [id number] Age: 49 Acct:[id number] Loc: [facility] ADM Date: 11/29/24Attending Dr: Ordering Physician: Lacie Patiño FNP Date of Service: 11/29/24 Procedure(s): XR chest 2V Accession Number(s): [id number] cc: Lacie Patiño FNP; Newton, Mary Amos MD~ CHEST RADIOGRAPH, PA AND LATERAL CLINICAL HISTORY: Productive cough x 1 week . COMPARISON: 12/07/2022 TECHNIQUE: PA and lateral views of the chest. FINDINGS The cardiomediastinal silhouette is unremarkable. The lungs are clear. Visualized osseous structures and soft tissues are unremarkable. IMPRESSION: No focal infiltrate or effusion. Reviewed, dictated and finalized at location A. [employer] Please be advised this is a medical document. It is intended for [id number] communication. It is written in medical language and may contain unfamiliar abbreviations or verbiage. Medical documents are intended to carry relevant information, facts as evident, and the clinical opinion of the practitioner at the time of the encounter. This report may have been done utilizing a voice recognition system. Attempts have been made to correct errors. However, there may be uncorrected grammatical, spelling, and recognition errors present. The file time of this note does not necessarily represent the time of service. Dictated By: Catherine Boykin MD 11/29/24 1828 Signed By: <Electronically signed by Catherine Boykin MD in OV> Discharge Plan Discharge Clinical Impression: Sinusitis Patient Disposition: Home, Self-Care Condition: Stable Instructions: Sinusitis (ED) Additional Instructions: Take medications as prescribed. Follow with primary care provider. Emergency department for any new or worse symptoms Patient Language: [place] Citizen Prescriptions: New amoxicillin-pot clavulanate 875-125 mg tablet 1 tablet PO Q12H Qty: 14 0RF prednisone 50 mg tablet 50 mg PO DAILY Qty: 5 0RF benzonatate 200 mg capsule 200 mg PO TID PRN (Reason: cough) Qty: 30 0RF No Action ergocalciferol (vitamin D2) 1,250 mcg (50,000 unit) capsule dicyclomine 10 mg capsule 10 mg PO QID PRN (Reason: abdominal pain) Qty: 120 0RF cholestyramine-aspartame [Cholestyramine Light] 4 gram powder in packet 4 g PO DAILY Qty: 30 2RF Rx Instructions: administer w/meal; avoid other meds within 1hr before or 4-6hr after dose sumatriptan succinate 25 mg tablet See Rx Instructions PO .COMPLEX Rx Instructions: take 1 tab at onset of headache; if no relief may repeat 1 tab after at least 2 hrs; max = 4 tabs/24 hr PO Simponi ARIA 12.5 mg/mL solution IV rosuvastatin 5 mg tablet 5 mg PO QHS Qty: 90 1RF tirzepatide (weight loss) 5 mg/0.5 mL pen injector 5 mg subcut WEEKLY Qty: 2 3RF Follow-up/Referrals: Newton,Mary Nelson MD [Primary Care Provider] - 2 Weeks Stand Alone Forms: Work/School Release IP Time of Disposition: 18:52
[2024-11-29 17:10] VITALS: RESP 16; O2SAT 99
[2024-11-29 17:23] LABS: EDCOVIDSCREEN Negative (Negative); EDINFLUASCREEN Negative (Negative); EDINFLUBSCREEN Negative (Negative)
== END 2024-11-29 19:00 | disposition home or self-care (01) ==
LOC: EXPCOLL 16:52
PROVIDERS: Emergency Provider Nurse Practitioner Family; PCP Family Medicine
DX: J32.9 Chronic sinusitis, unspecified (principal); Z20.822 Contact with and (suspected) exposure to COVID-19; E11.9 Type 2 diabetes mellitus without complications; M35.00 Sjogren syndrome, unspecified
CPT/HCPCS: 71046; 87426; 87804; 99213; G0463

== ENCOUNTER 2024-12-04 17:57 | Emergency (ER) | payer OTHER, SELFPAY ==
--- NOTE | ~2024-12-04 | XR_ITS ---
EXAM: XR foot LT min 3V, XR ankle LT 2V DATE: 12/04/2024 18:23 HISTORY: FELL PAIN/SWELLING MEDIAL LEFT FOOT/ANKLE . COMPARISON: None available. FINDINGS: Normal mineralization. Curvilinear ossific fragment dorsal to the anterior talus. No lytic or blastic lesion. Mild degenerative change at the ankle joint and first MTP joint. Achilles and shell ntar enthesopathy. No erosion or periosteal change. Mild ankle soft tissue swelling. Ankle joint effu diana. IMPRESSION: Anterior capsular avulsion fracture. Reviewed, dictated and finalized at location K. IMPRESSION: Anterior capsular avulsion fracture.
[2024-12-04 18:04] VITALS: BP 153/81; PULSE 94; RESP 16; TEMP 36.2; O2SAT 99
--- NOTE | 2024-12-04 18:06 | ED.EXTPRO ---
HPI - Extremity Problem General Chief complaint: Extremity Injury, Lower Stated complaint: FALL Time Seen by Provider: 12/04/24 18:01 Source: patient, RN notes reviewed and old records reviewed Mode of arrival: ambulatory Limitations: no limitations History of Present Illness HPI Narrative: Patient presents with complaints of pain to her tailbone and to her left foot/ankle after tripping on some steps last night. She reports that she was going down steps at a soccer game, tripped on a couple of limb, twisted her left foot/ankle and landed on her buttocks. She has been taking ibuprofen for her symptoms. She denies any numbness or tingling. Denies any loss of bowel or bladder control. She does report that she is able to bear weight on the affected foot and ankle, but this does increase her pain. She has been taking ibuprofen for her symptoms with moderate relief. Related Data Home Medications ?Medication ?Instructions ?Recorded ?Confirmed ?Last Taken ?Type golimumab 12.5 mg/mL intravenous IV 11/30/23 09/12/24 Unknown History solution (Simponi ARIA) ergocalciferol (vitamin D2) 1,250 11/29/24 Unknown History mcg (50,000 unit) capsule etanercept 50 mg/mL (1 mL) mg subcut 12/04/24 Unknown History subcutaneous pen injector (Enbrel SureClick) lifitegrast 5 % eye drops in a drp 12/04/24 Unknown History dropperette (Xiidra) Allergies Allergy/AdvReac Type Severity Reaction Status Date / Time No Known Allergies Allergy Verified 12/04/24 18:07 Review of Systems Review of Systems: All systems reviewed & are unremarkable except as noted in HPI and below Constitutional: Constitutional: Reports no additional constitutional complaints ENT: Reports system reviewed and no additional complaints, except as documented Cardiovascular: Cardiovascular: Reports no additional cardiovascular complaints Respiratory: Respiratory: Reports no additional respiratory complaints Gastrointestinal: Gastrointestinal: Reports no additional gastrointestinal complaints Musculoskeletal: Musculoskeletal: Reports no additional musculoskeletal complaints and Reports as per HPI [facility] Past Medical History Medical History Helicobacter pylori gastritis Abdominal pain Chronic pain Migraines Diabetes Vaginal delivery Sjogren's disease Surgical History Surgical History History of cystoscopy History of robot-assisted laparoscopic hysterectomy Family History Family History Father Family history of diabetes mellitus in first degree relative Sibling Family history of diabetes mellitus in first degree relative Mother Family history of malignant neoplasm of uterus Social History Social History Smoking status: Never smoker Second hand tobacco smoke exposure: No Alcohol intake: current Substance use: never Substance use type: does not use Lack of Transportation: No Lack of Food: Never True Current Housing: I Have Housing Concerned About Future Housing: No Difficulty Paying Gas/Electric Bills: No Difficulty Paying for Meds: No Currently Unemployed: No Education: Trade/Vocational Certificate Living arrangements: with family Spiritual care concerns: No Comments At the time of my signature, I reviewed and agree with the nursing past medical, surgical, social, and family history. There is no relevant family history pertinent to the patient complaint. Exam Const: General: cooperative, no acute distress, alert and awake Orientation/consciousness: oriented to person, oriented to place and oriented to time HENMT: Head: normal to inspection Resp: Effort & Inspection: normal respiratory effort and able to speak in complete sentences Auscultation: clear to auscultation bilaterally, no crackles, no rales, no rhonchi and no wheezes Cardio: Palpation: normal PMI Rate: regular rate Rhythm: regular rhythm Heart sounds: S1 normal heart sound present and S2 normal heart sound present Back/Spine/Pelvis: Back/spine/pelvis image:  1. tenderness Neuro: General: oriented to person, oriented to place and oriented to time Cranial nerves: Yes CN's II-XII intact bilaterally Extrem: General: normal to inspection and full ROM Left lower extremity: normal to inspection, full ROM, normal capillary refill, ankle Details: swelling Details: laterally and medially and foot Details: normal capillary refill, tenderness Location: of the dorsal foot Location: medially, vascular exam Details: dorsalis pedis pulse present and normal capillary refill and motor-sensory exam Psych: Appearance: grossly normal Thought process: Normal thought process present Insight: Good insight present (Psych) Judgement: Good judgement present (Psych) Course Course Level of Care: Express Care Visit Vital Signs Vital signs: Reviewed MDM - Extremity (Nontraumatic) MDM Narrative Medical decision making narrative: Patient with probable avulsion fracture to lateral ankle, Garrett, postop shoe, ortho follow-up. Light duty for work. Discharge instructions reviewed with patient, as well as provided in writing per nursing staff. The instructions also include specific and strict return/GO TO THE ER as well as f/u information. All questions have been answered, and the patient deny any further questions with discharge and discharge plan. Some parts of this dictation were generated by voice recognition software and may contain typographical and/or grammatical inaccuracies. Differential Diagnosis Differential diagnosis: Likely other (Ankle fracture, ankle sprain, ankle derangement) Imaging Data Attestation: I personally reviewed and interpreted this imaging study as follows: My impression: possible small avualsion Radiologist's impression: [facility] [address] [place] [address] XRay Report Signed Patient: Katlyn Wallis : 1975 MR#: [id number] Age: 49 Acct:[id number] Loc: [facility] ADM Date: 12/04/24Attending Dr: Ordering Physician: Lacie Patiño FNP Date of Service: 12/04/24 Procedure(s): XR ankle LT 2V; XR foot LT min 3V Accession Number(s): [id number]; [id number] cc: Lacie Patiño FNP; Subhash Bang MD~ EXAM: XR foot LT min 3V, XR ankle LT 2V DATE: 12/04/2024 18:23 HISTORY: FELL PAIN/SWELLING MEDIAL LEFT FOOT/ANKLE . COMPARISON: None available. FINDINGS: Normal mineralization. Curvilinear ossific fragment dorsal to the anterior talus. No lytic or blastic lesion. Mild degenerative change at the ankle joint and first MTP joint. Achilles and plantar enthesopathy. No erosion or periosteal change. Mild ankle soft tissue swelling. Ankle joint effusion. IMPRESSION: Anterior capsular avulsion fracture. Reviewed, dictated and finalized at location K. Please be advised this is a medical document. It is intended for dmbj-om-hqty communication. It is written in medical language and may contain unfamiliar abbreviations or verbiage. Medical documents are intended to carry relevant information, facts as evident, and the clinical opinion of the practitioner at the time of the encounter. This report may have been done utilizing a voice recognition system. Attempts have been made to correct errors. However, there may be uncorrected grammatical, spelling, and recognition errors present. The file time of this note does not necessarily represent the time of service. Dictated By: Leonidas Yarbrough MD 12/04/241911 Signed By: <Electronically signed by Leonidas Yarbrough MD in OV> Discharge Plan Discharge Clinical Impression: Avulsion fracture of ankle Patient Disposition: Home, Self-Care Condition: Stable Instructions: Antibiotic Form, Avulsion Fracture (ED) Additional Instructions: Take medications as prescribed. Follow with primary care provider and orthopedic doctor. Emergency department for new or worse symptoms Patient Language: [place]ian Prescriptions: New ibuprofen 800 mg tablet 800 mg PO TID PRN (Reason: pain) Qty: 30 0RF No Action ergocalciferol (vitamin D2) 1,250 mcg (50,000 unit) capsule Enbrel SureClick 50 mg/mL (1 mL) pen injector SUBCUT Xiidra 5 % dropperette Simponi ARIA 12.5 mg/mL solution IV rosuvastatin 5 mg tablet 5 mg PO QHS Qty: 90 1RF tirzepatide (weight loss) 5 mg/0.5 mL pen injector 5 mg subcut WEEKLY Qty: 2 3RF Follow-up/Referrals: Subhash Bang MD [Primary Care Provider] - Kris Dasilva MD [Physician] - 3 Days Stand Alone Forms: Work/School Release IP Time of Disposition: 19:29
== END 2024-12-04 19:36 | disposition home or self-care (01) ==
PROVIDERS: Emergency Provider Nurse Practitioner Family; PCP Family Medicine
DX: S82.892A Other fracture of left lower leg, initial encounter for closed fracture (principal); W10.9XXA Fall (on) (from) unspecified stairs and steps, initial encounter; E11.9 Type 2 diabetes mellitus without complications; Z79.85 Long-term (current) use of injectable non-insulin antidiabetic drugs; M35.00 Sjogren syndrome, unspecified
CPT/HCPCS: 73600; 73630; 99214; G0463

== ENCOUNTER 2025-05-03 15:37 | Emergency (ER) | payer OTHER, SELFPAY ==
--- NOTE | ~2025-05-03 | XR_ITS ---
EXAMINATION: XR knee RT min 4V DATE: 05/03/2025 16:14 INDICATION: Right knee pain and swelling TECHNIQUE: Anteroposterior, 2 oblique and crosstable lateral views of the right knee were obtained COMPARISON: None. FINDINGS: Alignment is normal. No fracture. Joint spaces appear normal on nonweightbearing imaging. Small righ t knee joint effusion without layering lipohemarthrosis. Soft tissues are unremarkable. IMPRESSION: 1. Small right knee joint effusion. No osseous abnormality. Reviewed, dictated and finalized at location A.
[2025-05-03 15:47] VITALS: BP 152/97; PULSE 87; RESP 16; TEMP 36.3; O2SAT 100
--- NOTE | 2025-05-03 16:27 | ED_ITS ---
HPI - Extremity Injury (Lower) General Chief Complaint: Extremity Injury, Lower Stated Complaint: Right Knee Pain Time Seen by Provider: 05/03/25 15:41 Source: patient Mode of arrival: ambulatory Limitations: no limitations History of Present Illness HPI Narrative: Patient is a 49-year-old female who presents with right knee pain for 1 week. Denies any known trauma or injury. Has not changed any daily routines. Reports it is more painful to bear weight but not necessarily to touch it. Denies any numbness, tingling or weakness. Patient had previous injury to left foot and may have compensated with right leg. Related Data Home Medications ?Medication ?Instructions ?Recorded ?Confirmed ?Last Taken ?Type etanercept 50 mg/mL (1 mL) mg subcut 12/04/24 02/12/25 Unknown History subcutaneous pen injector (Enbrel SureClick) Allergies Allergy/AdvReac Type Severity Reaction Status Date / Time No Known Allergies Allergy Verified 05/03/25 15:56 Review of Systems Review of Systems: All systems reviewed & are unremarkable except as noted in HPI and below Constitutional: Constitutional: Denies body ache(s), Denies chills, Denies fatigue, Denies fever(s), Denies headache(s), Denies malaise and Denies weakness Eyes: Eyes: Denies blurry vision, Denies irritation and Denies loss of vision ENT: Denies otalgia, Denies headache(s), Denies nasal discharge, Denies sinus pain and Denies sore throat Cardiovascular: Cardiovascular: Denies chest pain, Denies irregular heart rhythm and Denies dyspnea Respiratory: Respiratory: Denies dyspnea Gastrointestinal: Gastrointestinal: Denies abdominal pain, Denies melena, Denies hematochezia, Denies diarrhea, Denies nausea and Denies vomiting Musculoskeletal: Musculoskeletal: Denies back pain, Denies myalgias, Reports arthralgias and Reports joint swelling Integumentary/Breasts: Skin/Breast: Denies pruritus and Denies rash Neurologic: Denies headache(s), Denies loss of vision and Denies weakness Psychiatric: Psychiatric: Reports no additional psychiatric complaints Endocrine: Endocrine: Denies fatigue PMFSH Past Medical History Medical History Helicobacter pylori gastritis Abdominal pain Chronic pain Migraines Diabetes Vaginal delivery Sjogren's disease Surgical History Surgical History History of cystoscopy History of robot-assisted laparoscopic hysterectomy Family History Family History Father Family history of diabetes mellitus in first degree relative Sibling Family history of diabetes mellitus in first degree relative Mother Family history of malignant neoplasm of uterus Social History Social History Smoking status: Never smoker Second hand tobacco smoke exposure: No Alcohol intake: current Substance use: never Substance use type: does not use Lack of Transportation: No Lack of Food: Never True Current Housing: I Have Housing Concerned About Future Housing: No Difficulty Paying Gas/Electric Bills: No Difficulty Paying for Meds: No Currently Unemployed: No Education: Trade/Vocational Certificate Living arrangements: with family Spiritual care concerns: No Comments At time of signature, agree with nursing past medical, surgical, social and family history. There is no relevant family history pertinent to the presenting complaint. Exam Const: General: cooperative, healthy appearing, comfortable, no acute distress and well nourished Nutritional Appearance: well nourished Orientation/consciousness: patient oriented x3 Limitations: no limitations HENMT: Head: normal to inspection, normocephalic and atraumatic Ears: hearing grossly normal bilaterally and external ears normal Face/Nose/Sinus: Normal external nose present, normal facial exam and face symmetric Face and sinus: normal facial exam and face symmetric Mouth: Yes lip normal Eyes: General: appearance normal, both eyes and all related structures Alignment and Position: alignment normal and position normal Periorbital: periorbital findings normal Eyelids: eyelids normal Pupils: Equal, round and reactive pupils present EOM: EOMs intact bilaterally Neck: Neck: normal visual inspection, full ROM and supple Chest: Chest palpation & inspection: normal inspection of the chest Resp: Effort & Inspection: normal respiratory effort and able to speak in complete sentences Auscultation: clear to auscultation bilaterally Cardio: Rate: regular rate Rhythm: regular rhythm Heart sounds: S1 normal heart sound present and S2 normal heart sound present GI: Inspection: normal to inspection Skin: General skin exam: normal color and no rashes or lesions noted Neuro: General: patient oriented x3 and moves all extremities Cranial nerves: Yes Equal, round and reactive pupils present Speech: normal speech Gait exam (Neuro): Normal gait present Extrem: General: normal to inspection, full ROM and no edema Right lower extremity: normal to inspection, hip/thigh Details: normal to inspection and normal ROM; no swelling, knee Details: swelling Location: of the infrapatellar area, normal ROM and knee ligament exam normal Details: anterior drawer test normal, posterior drawer test normal, valgus stress test normal and varus stress test normal; no ecchymosis and no unusual warmth, lower leg Details: normal to inspection and no edema; no tenderness and ankle Details: normal to inspection and normal ROM; no tenderness, no swelling and achilles tendon exam normal Psych: Appearance: grossly normal and well kempt Mental Status: mental status grossly normal Speech and movement: Normal speech and movement present Affect: normal affect Attitude: cooperative Thought process: Normal thought process present Course Course Emergency Course: Patient is aware of diagnosis, understands and agrees to treatment plan. Anticipatory guidance given. Patient agrees to follow-up as directed and is aware of reasons to seek care at the emergency department. Portions of this record may have been created with voice recognition software Level of Care: Express Care Visit Vital Signs Vital signs: Vital Signs Temperature 36.3 C L 05/03/25 15:47 Pulse Rate 87 05/03/25 15:47 Respiratory Rate 16 05/03/25 15:47 Blood Pressure 152/97 H 05/03/25 15:47 Pulse Oximetry 100 05/03/25 15:47 Oxygen Delivery Room Air 05/03/25 15:47 Temperature 36.3 C L 05/03/25 15:47 Pulse Rate 87 05/03/25 15:47 Respiratory Rate 16 05/03/25 15:47 Blood Pressure 152/97 H 05/03/25 15:47 Pulse Oximetry 100 05/03/25 15:47 Oxygen Delivery Room Air 05/03/25 15:47 Reviewed MDM - Extremity Injury (Lower) MDM Narrative Medical decision making narrative: Patient is able to bear weight and ambulate with moderate pain. No surface of trauma or obvious effusion. No overlying erythema or warmth. The R knee is with obvious swelling but no deformity when comparing to the L. Fully extended knee, internal and external rotation. Nontender to palpate of the patella, no effusion. tender over the infrapatellar tendon.. Nontender over the medial or lateral joint line, or medial or lateral tibial plateaus. Nontender over the proximal fibular head. Nontender, fullness, or mass of the popliteal fossa. NO quadriceps tenderness. No laxity of the ACL, PCL, MCL, LCL. Distal motor and neurovascular status intact. Knee x-ray obtained consistent with physical findings of a fusion. Garrett wrap applied Differential Diagnosis Differential diagnosis: Likely acute internal derangement of knee and other (Knee sprain, knee effusion) Medical Records Attestation: I reviewed the patient's medical records. Imaging Data Radiologist's impression: EXAMINATION: XR knee RT min 4V DATE: 05/03/2025 16:14 INDICATION: Right knee pain and swelling TECHNIQUE: Anteroposterior, 2 oblique and crosstable lateral views of the right knee were obtained COMPARISON: None. FINDINGS: Alignment is normal. No fracture. Joint spaces appear normal on nonweightbearing imaging. Small right knee joint effusion without layering lipohemarthrosis. Soft tissues are unremarkable. IMPRESSION: 1. Small right knee joint effusion. No osseous abnormality. Discharge Plan Discharge Clinical Impression: Effusion of knee joint right Patient Disposition: Home Condition: Stable Instructions: Swollen Knee Joint (ED) Additional Instructions: Xray showed no fracture. Minimize activities that aggravate the condition The RICE protocol. Follow the RICE protocol as soon as possible after your injury: Rest your ankle by not walking on it. Ice should be immediately applied to keep the swelling down. It can be used for 20 to 30 minutes, three or four times daily. Do not apply ice directly to your skin. Compression dressings, bandages or garrett-wraps will immobilize and support your injured knee. Elevate your knee above the level of your heart as often as possible during the first 48 hours. Medication: Nonsteroidal anti-inflammatory drugs (NSAIDs) such as ibuprofen and naproxen can help control pain and swelling. Because they improve function by both reducing swelling and controlling pain, they are a better option for mild sprains than narcotic pain medicines. Please schedule a follow-up visit with your personal physician for further evaluation and treatment within 1week OR If your symptoms persist, change or worsen significantly before you can contact your personal physician then please, without delay, go to the emergency department for further evaluation. Your blood pressure was elevated above 120/80 today at Urgent Care. This puts you above the threshold for follow up visit with a primary care provider. High blood pressure does not usually cause any symptoms, however it may lead to kidney failure, stroke, heart disease just to name a few if untreated . Many people are anxious when seeing a provider or nurse. As a result, you are not diagnosed with hypertension at this time unless your blood pressure is persistently high at two office visits at least one week apart. Some things that can help lower blood pressure are lifestyle modifications, such as light exercise, decreased salt in diet, and weight loss. It is important to follow up with a PCP about this within 1 week. Patient Language: Jordanian Prescriptions: New prednisone 20 mg tablet 40 mg PO DAILY 5 Days Qty: 10 0RF No Action Enbrel SureClick 50 mg/mL (1 mL) pen injector SUBCUT Mounjaro 2.5 mg/0.5 mL pen injector 2.5 mg subcut WEEKLY Qty: 2 0RF Rx Instructions: for 4 weeks (DME) blood-glucose meter [OneTouch Ultra2 Meter] Misc See Rx Instructions .Route Qty: 1 0RF Rx Instructions: As directed (DME) lancets [OneTouch Delica Plus Lancet] 33 gauge misc See Rx Instructions .Route Qty: 100 0RF Rx Instructions: check once a week (DME) OneTouch Ultra Test Strip See Rx Instructions .Route Qty: 100 0RF Rx Instructions: check once a week (DME) lancing device with lancets [OneTouch Delica Plus Lanc Dev] Kit See Rx Instructions .Route Qty: 1 0RF Rx Instructions: As directed Follow-up/Referrals: Rosalina,Hellen Quinteros NP [Primary Care Provider] - 3 Days Stand Alone Forms: Work/School Release IP Time of Disposition: 17:06
== END 2025-05-03 17:15 | disposition home or self-care (01) ==
PROVIDERS: Emergency Provider Nurse Practitioner Family; PCP Nurse Practitioner Family
DX: M25.461 Effusion, right knee (principal); E11.9 Type 2 diabetes mellitus without complications; Z79.85 Long-term (current) use of injectable non-insulin antidiabetic drugs; M35.00 Sjogren syndrome, unspecified
CPT/HCPCS: 73564; 99213; G0463